=== PATIENT | male | born 1990 | race African-American/Black ===

== ENCOUNTER 2017-07-07 00:18 | Emergency (ER) | payer OTHER ==
[~2017-07-07] VITALS: Ht 185.4 cm; Wt 90.9 kg
[2017-07-07 01:38] LABS: BASO % 0.6 % (0.0-1.0); IMMATURE GRANULOCYTE % 0.3 % (0-0); LYMPH # 2.4 10^3/uL (1.5-6.5); LYMPH % 35.3 % (24.0-44.0); MEAN CORPUSCULAR HEMOGLOBIN 21.5 pg (27.0-33.0); MEAN CORPUSCULAR HGB CONC 29.8 g/dl (32.0-36.5); MEAN CORPUSCULAR VOLUME 72.3 fl (80.0-96.0); MONO # 0.5 10^3/uL (0.0-0.8); MONO % 7.2 % (0.0-5.0); NEUTROPHILS # 3.9 10^3/uL (1.8-7.7); NEUTROPHILS % 56.6 % (36.0-66.0); PLATELET COUNT, AUTOMATED 223 10^3/uL (150-450); RED CELL DISTRIBUTION WIDTH 17.2 % (11.5-14.5); WHITE BLOOD COUNT 6.8 10^3/uL (4.0-10.0)
[2017-07-07 02:00] LABS: ANION GAP 9 MEQ/L (8-16); BLOOD UREA NITROGEN 17 MG/DL (7-18); CALCIUM LEVEL 8.7 MG/DL (8.5-10.1); CARBON DIOXIDE LEVEL 25 MEQ/L (21-32); CHLORIDE LEVEL 108 MEQ/L (98-107); CREATININE FOR GFR 1.42 MG/DL (0.70-1.30); GLOMERULAR FILTRATION RATE > 60.0 (>60); GLUCOSE, FASTING 131 MG/DL (70-105); POTASSIUM SERUM 3.9 MEQ/L (3.5-5.1); SODIUM LEVEL 142 MEQ/L (136-145)
--- NOTE | 2017-07-07 03:50 | REPUSA ---
HISTORY: Trauma. COMPARISON: None. TECHNIQUE: Multiple thin section helically-acquired axially-displayed and helically acquired coronall y displayed computed tomographic images of the face are obtained from the mandible through the fronta l sinuses, with images obtained at soft tissue and bone window. 2D reformatted images were performed. FINDINGS: Acute displaced fracture of the right the inferior orbital wall. No associated muscle entrapment. Acute displaced fractures of the anterior, posterior and lateral heck of the right maxillary sinus w ith associated blood/fluid level in the right MAG3 sinus. Acute displaced fracture of the right zygomatic arch. Acute displaced fracture of the lateral wall of the right orbit. Edema of the right orbital fat with associated mild right exophthalmos. No muscular entrapment is seen. IMPRESSION: Acute fractures of the facial bones. Thank you for your kind referral of this patient
--- NOTE | 2017-07-07 03:50 | REPUSA ---
CLINICAL HISTORY: Head trauma. TECHNIQUE: Multiple axial brain CT scan sections were obtained from base to vertex without contrast a dministration. COMMENTS: The study shows normal configuration of sella turcica. There are no intra or extra-axial collections. There is no mass effect or midline shift. There is no evidence of hematoma formation. No hydrocephal us is present. No abnormal calcifications are noted. No significant abnormalities are seen either in the posterior fossa or supratentorial compartment. Acute displaced fracture of the right the inferior orbital wall. No associated muscle entrapment. Acute displaced fractures of the anterior, posterior and lateral heck of the right maxillary sinus w ith associated blood/fluid level in the right MAG3 sinus. Acute displaced fracture of the right zygomatic arch. Acute displaced fracture of the lateral wall of the right orbit. Edema of the right orbital fat with associated mild right exophthalmos. No muscular entrapment is seen. IMPRESSION: No evidence of acute intracranial pathology. No intracranial hemorrhage. Acute fractures of the facial bones. Thank you for your kind referral of this patient.
[2017-07-07] MEDS ORDERED: D5W/0.9% SODIUM CHLORIDE 1,000 ML IV SCH (04:30)
[2017-07-07] MEDS ORDERED: ONDANSETRON 4MG/2ML VIAL (J2405) IV ONE (09:00)
[2017-07-07] MEDS ORDERED: MORPHINE 4 MG/ML 1ML SYRINGE IV ONE (09:00)
[2017-07-07 09:02] VITALS: BP 128/86
== END 2017-07-07 09:04 | disposition short-term general hospital (02) ==
LOC: M ED 00:18 → EDBD 00:18 → M ED 09:04
DX: S02.92XA Unspecified fracture of facial bones, initial encounter for closed fracture (principal); Y04.8XXA Assault by other bodily force, initial encounter; Y92.410 Unspecified street and highway as the place of occurrence of the external cause; Y93.89 Activity, other specified; Y99.8 Other external cause status
CPT/HCPCS: 70450; 70486; 80048; 85025; 96374; 96375; 99285; G0480; J2405